=== PATIENT | female | born 1985 | race Caucasian/White ===

== ENCOUNTER 2016-05-17 18:38 | Emergency (ER) | payer OTHER ==
[~2016-05-17] VITALS: Ht 157.5 cm; Wt 77.0 kg
[2016-05-17 18:44] VITALS: BP 141/96; PULSE 118; RESP 16; TEMP 98.2; O2SAT 98
[2016-05-17] MEDS ORDERED: SODIUM CHLOR 0.9% 1000 ML INJ 1,000 ML IV ONE ×2 (19:24→21:45)
[2016-05-17] MEDS ORDERED: SODIUM CHLORIDE 0.9% FLUSH 5 ML FLUSH IVF PRN (19:30)
--- NOTE | 2016-05-17 19:31 | PD ---
HPI Chief Complaint: Syncope/Near-Syncope Time Seen by Provider: 19:26 Travel History International Travel<30 days: No Contact w/Intl Traveler<30days: No Traveled to known affect area: No History of Present Illness HPI Patient is a 31-year-old female presenting to the emergency Department for evaluation of itching. She states that she has visited [facility] since February and every time she goes there she sees black lines on the cabinets, on her children shoes, and she begins to itch. Patient reports feeling lightheaded, dizzy and almost passing out 2 days ago and then again this morning. She states that her skin feels as if something is bubbling underneath it and her arms begin to pulsate. She also reports being very thirsty, stating that she cannot get enough to drink. PFSH Past Medical History Anemia: Yes Diminished Hearing: No Tetanus Vaccination: Unknown Influenza Vaccination: No ?: Not LMP: 04/23/16 Tubal Ligation: Yes Past Surgical History Surgical History: No Previous Surgery Section: Yes (X2) Social History Alcohol Use: No Tobacco Use: Yes (/2 PPD) Substance Use: No Allergies-Medications (Allergen,Severity, Reaction): Coded Allergies: No Known Allergies (Verified , 05/17/16) Reported Meds & Prescriptions Reported Meds & Active Scripts Active Review of Systems Except as stated in HPI: all other systems reviewed are Neg HENT: Positive: Lightheadedness Cardiovascular: Positive: Palpitations, Tachycardia, No: Chest Pain or Discomfort Respiratory: No: Shortness of Breath Gastrointestinal: No: Nausea, Vomiting Skin: Positive Rash, Positive Itching Neurologic: Positive: Dizziness Psychiatric: No: Substance Abuse Physical Exam Narrative GENERAL: Developed, well nourished, alert female. Resting comfortably in no acute distress. SKIN: Warm and dry. HEAD: Atraumatic. Normocephalic. EYES: Pupils equal and round. No scleral icterus. No injection or drainage. ENT: No nasal bleeding or discharge. Mucous membranes pink and moist. NECK: Trachea midline. No JVD. CARDIOVASCULAR: Tachycardic. No murmur appreciated. RESPIRATORY: No accessory muscle use. Clear to auscultation. Breath sounds equal bilaterally. GASTROINTESTINAL: Abdomen soft, non-tender, nondistended. Hepatic and splenic margins not palpable. MUSCULOSKELETAL: No obvious deformities. No clubbing. No cyanosis. No edema. NEUROLOGICAL: Awake and alert. No obvious cranial nerve deficits. Motor grossly within normal limits. Normal speech. PSYCHIATRIC: Appropriate mood and affect; insight and judgment normal. Data Data Last Documented VS Vital Signs Date Time Temp Pulse Resp B/P Pulse Ox O2 Delivery O2 Flow Rate FiO2 05/17/16 22:51 103 22 106/72 97 Room Air 05/17/16 18:44 98.2 Orders Electrocardiogram (05/17/16 ) Ed Urine Pregnancytest Poc (05/17/16 19:24) Complete Blood Count With Diff (05/17/16 19:24) Comprehensive Metabolic Panel (05/17/16 19:24) Magnesium (Mg) (05/17/16 19:24) Ckmb (Isoenzyme) Profile (05/17/16:24) Troponin I (05/17/16:24) Act Partial Throm Time (Ptt) (05/17/16:24) Prothrombin Time / Inr (Pt) (05/17/16 19:24) Urinalysis - C+S If Indicated (05/17/16 19:24) Ct Brain W/O Iv Contrast(Rout) (05/17/16 19:24) Ecg Monitoring (05/17/16 19:24) Iv Access Insert/Monitor (05/17/16:24) Oximetry (05/17/16 19:24) Sodium Chloride 0.9% Flush (Ns Flush) (05/17/16 19:30) Sodium Chlor 0.9% 1000 Ml Inj (Ns 1000 M (05/17/16 19:24) Orthostatic Vital Signs (05/17/16 19:24) Drug Screen, Random Urine (05/17/16 19:24) CKMB (05/17/16 19:40) CKMB% (05/17/16 19:40) Sodium Chlor 0.9% 1000 Ml Inj (Ns 1000 M (05/17/16 21:45) Potassium Chloride (Kcl) (05/17/16 22:30) Labs Laboratory Tests Test 05/17/16 05/17/16 19:40 19:55 White Blood Count 7.9 TH/MM3 Red Blood Count 4.51 MIL/MM3 Hemoglobin 11.8 GM/DL Hematocrit 34.4 % Mean Corpuscular Volume 76.1 FL Mean Corpuscular Hemoglobin 26.1 PG Mean Corpuscular Hemoglobin 34.3 % Concent Red Cell Distribution Width 19.1 % Platelet Count 255 TH/MM3 Mean Platelet Volume 7.7 FL Neutrophils (%) (Auto) 74.7 % Lymphocytes (%) (Auto) 20.7 % Monocytes (%) (Auto) 3.9 % Eosinophils (%) (Auto) 0.4 % Basophils (%) (Auto) 0.3 % Neutrophils # (Auto) 5.9 TH/MM3 Lymphocytes # (Auto) 1.6 TH/MM3 Monocytes # (Auto) 0.3 TH/MM3 Eosinophils # (Auto) 0.0 TH/MM3 Basophils # (Auto) 0.0 TH/MM3 CBC Comment DIFF FINAL Differential Comment Prothrombin Time 10.7 SEC Prothromb Time International 1.0 RATIO Ratio Activated Partial 25.5 SEC Thromboplast Time Sodium Level 140 MEQ/L Potassium Level 3.1 MEQ/L Chloride Level 102 MEQ/L Carbon Dioxide Level 30.4 MEQ/L Anion Gap 8 MEQ/L Blood Urea Nitrogen 11 MG/DL Creatinine 0.89 MG/DL Estimat Glomerular Filtration 74 ML/MIN Rate Random Glucose 99 MG/DL Calcium Level 8.2 MG/DL Magnesium Level 2.1 MG/DL Total Bilirubin 0.7 MG/DL Aspartate Amino Transf 28 U/L (AST/SGOT) Alanine Aminotransferase 36 U/L (ALT/SGPT) Alkaline Phosphatase 56 U/L Total Creatine Kinase 328 U/L Creatine Kinase MB 5.0 NG/ML Creatine Kinase MB % 1.5 % Troponin I LESS THAN 0.02 NG/ML Total Protein 7.8 GM/DL Albumin 4.0 GM/DL Urine Color YELLOW Urine Turbidity HAZY Urine pH 6.0 Urine Specific [place] 1.029 Urine Protein 30 mg/dL Urine Glucose (UA) NEG mg/dL Urine Ketones 10 mg/dL Urine Occult Blood NEG Urine Nitrite NEG Urine Bilirubin NEG Urine Urobilinogen 2.0 MG/DL Urine Leukocyte Esterase NEG Urine RBC 11 /hpf Urine WBC 2 /hpf Urine Squamous Epithelial 8 /hpf Cells Urine Bacteria RARE /hpf Urine Mucus MANY /lpf Microscopic Urinalysis Comment CULT NOT INDICATED Urine Opiates Screen NEG Urine Barbiturates Screen NEG Urine Amphetamines Screen POS Urine Benzodiazepines Screen NEG Urine Cocaine Screen NEG Urine Cannabinoids Screen NEG MDM Medical Decision Making Medical Screen Exam Complete: Yes Emergency Medical Condition: Yes Interpretation(s) Last Impressions Head CT 05/17/161923 Signed Impressions: Service Date/Time: Tuesday, May 17, 2016 21:38 - CONCLUSION: Normal examination for a patient of this age. Gilberto Peacock MD Laboratory Tests Test 05/17/16 05/17/16 19:40 19:55 White Blood Count 7.9 TH/MM3 Red Blood Count 4.51 MIL/MM3 Hemoglobin 11.8 GM/DL Hematocrit 34.4 % Mean Corpuscular Volume 76.1 FL Mean Corpuscular Hemoglobin 26.1 PG Mean Corpuscular Hemoglobin 34.3 % Concent Red Cell Distribution Width 19.1 % Platelet Count 255 TH/MM3 Mean Platelet Volume 7.7 FL Neutrophils (%) (Auto) 74.7 % Lymphocytes (%) (Auto) 20.7 % Monocytes (%) (Auto) 3.9 % Eosinophils (%) (Auto) 0.4 % Basophils (%) (Auto) 0.3 % Neutrophils # (Auto) 5.9 TH/MM3 Lymphocytes # (Auto) 1.6 TH/MM3 Monocytes # (Auto) 0.3 TH/MM3 Eosinophils # (Auto) 0.0 TH/MM3 Basophils # (Auto) 0.0 TH/MM3 CBC Comment DIFF FINAL Differential Comment Prothrombin Time 10.7 SEC Prothromb Time International 1.0 RATIO Ratio Activated Partial 25.5 SEC Thromboplast Time Sodium Level 140 MEQ/L Potassium Level 3.1 MEQ/L Chloride Level 102 MEQ/L Carbon Dioxide Level 30.4 MEQ/L Anion Gap 8 MEQ/L Blood Urea Nitrogen 11 MG/DL Creatinine 0.89 MG/DL Estimat Glomerular Filtration 74 ML/MIN Rate Random Glucose 99 MG/DL Calcium Level 8.2 MG/DL Magnesium Level 2.1 MG/DL Total Bilirubin 0.7 MG/DL Aspartate Amino Transf 28 U/L (AST/SGOT) Alanine Aminotransferase 36 U/L (ALT/SGPT) Alkaline Phosphatase 56 U/L Total Creatine Kinase 328 U/L Creatine Kinase MB 5.0 NG/ML Creatine Kinase MB % 1.5 % Troponin I LESS THAN 0.02 NG/ML Total Protein 7.8 GM/DL Albumin 4.0 GM/DL Urine Color YELLOW Urine Turbidity HAZY Urine pH 6.0 Urine Specific [place] 1.029 Urine Protein 30 mg/dL Urine Glucose (UA) NEG mg/dL Urine Ketones 10 mg/dL Urine Occult Blood NEG Urine Nitrite NEG Urine Bilirubin NEG Urine Urobilinogen 2.0 MG/DL Urine Leukocyte Esterase NEG Urine RBC 11 /hpf Urine WBC 2 /hpf Urine Squamous Epithelial 8 /hpf Cells Urine Bacteria RARE /hpf Urine Mucus MANY /lpf Microscopic Urinalysis Comment CULT NOT INDICATED Urine Opiates Screen NEG Urine Barbiturates Screen NEG Urine Amphetamines Screen POS Urine Benzodiazepines Screen NEG Urine Cocaine Screen NEG Urine Cannabinoids Screen NEG Vital Signs Date Time Temp Pulse Resp B/P Pulse Ox O2 Delivery O2 Flow Rate FiO2 05/17/16 18:44 98.2 118 16 141/96 98 Differential Diagnosis Substance abuse versus electrolyte abnormality versus cardiac arrhythmia versus urinary tract infection versus psychosis versus other Narrative Course Patient is a 31-year-old female presenting to the emergency department for evaluation of what she thought was a skin rash, she then stated she was having episodes where she felt as if she would pass out, she reports increased thirst, and tachycardia. Labs and imaging ordered. Was placed on cardiac telemetry monitoring, continuous pulse oximetry. IV access was initiated. Cardiac on arrival, her heart rate did respond after 1 L of IV fluids down to 102-105, a second liter was ordered. CT scan of the brain is negative for acute abnormality CBC is unremarkable Chemistry with a potassium of 3.1, CK 328, troponin is negative Tox screen was positive for amphetamines, patient is on Adderall and has been for several years and her dose was recently lowered per her report. Urinalysis is not indicative of urinary tract infection. Patient was given oral potassium replacement as well as 2 L of IV fluid. She has a primary care provider who is also evaluated her for these issues. At this time patient will be discharged after her IV fluids are done being administered. Patient would rather go home, she stated that she will follow-up with her doctor. It was advised that she may consider discontinuing the Adderall or taking drug holidays. Additionally she was encouraged to speak with her primary doctor regarding this as well. Furthermore patient was advised to return to emergency department for any new or worsening symptoms. Patient verbalized understanding of these instructions. Patient is stable for discharge. Labs and imaging were discussed with my attending physician prior to disposition. Attending was in agreement with Plan of care as well as discharging patient with follow-up with primary doctor Patient's heart rate was 103 after 2 L of IV fluids. Tachycardia is likely secondary to Adderall use. Patient continues to deny any chest pain. She was encouraged again to speak with her primary doctor regarding this. Patient verbalized understanding of instructions. Patient is stable for discharge. Diagnosis Primary Impression: Near syncope Additional Impressions: Hypokalemia Tachycardia Referrals: Primary Care Physician 2 days Patient Instructions: Amphetamine (By mouth), General Instructions, Syncope (ED ), Tachycardia (ED) Additional Instructions: Follow-up with your primary doctor in 24-48 hours Return to emergency department for any new or worsening symptoms Maintain adequate fluid intake Med/Other Pt SpecificInfo: No Change to Meds Disposition: 01 DISCHARGE HOME Condition: Stable Betzy Clifford May 17, 2016 19:31 Betzy Clifford May 17, 2016 19:31
[2016-05-17 19:57] LABS: AUTOMATED NEUTROPHIL # 5.9 TH/MM3 (1.8-7.7); BASOPHIL % 0.3 % (0.0-2.0); EOSINOPHIL % 0.4 % (0.0-4.0); HEMATOCRIT 34.4 % (35.0-46.0); HEMO FLAGS DIFF FINAL; LYMPH % 20.7 % (9.0-44.0); LYMPHOCYTE # 1.6 TH/MM3 (1.0-4.8); MEAN CELL VOLUME 76.1 FL (80.0-100.0); MEAN CORPUSCULAR HEMOGLOBIN 26.1 PG (27.0-34.0); MEAN CORPUSCULAR HGB CONC 34.3 % (32.0-36.0); MONO % 3.9 % (0.0-8.0); NEUT % 74.7 % (16.0-70.0); PLATELET COUNT 255 TH/MM3 (150-450); RED BLOOD COUNT 4.51 MIL/MM3 (4.00-5.30); RED CELL DISTRIBUTION WIDTH 19.1 % (11.6-17.2); WHITE BLOOD COUNT 7.9 TH/MM3 (4.0-11.0)
[2016-05-17 19:58] VITALS: BP 129/80; PULSE 123; RESP 22; O2SAT 98
[2016-05-17 20:03] LABS: APTT (PATIENT) 25.5 SEC (24.3-30.1); PROTHROMBIN TIME - PATIENT 10.7 SEC (9.8-11.6)
[2016-05-17 20:06] VITALS: BP_SYST 133; BP_SYST 134; BP_DIAS 74; BP_DIAS 75; BP_DIAS 81; RESP 16; RESP 21; RESP 24
[2016-05-17 20:40] LABS: BACTERIA, URINE RARE /hpf; BLOOD, URINE NEG (NEG); COMMENT (UR) CULT NOT INDICATED; CULTURE IF INDICATED CULT NOT INDICATED; GLUCOSE,URINE NEG (NEG); KETONE, URINE 10 mg/dL (NEG); MUCUS URINE MANY /lpf (OCC); NITRITE,URINE NEG (NEG); SQUAMOUS EPITHELIAL CELL URINE 8 /hpf (0-5); URINE COLOR YELLOW (YELLW/STRAW)
[2016-05-17 20:56] LABS: ANION GAP 8 MEQ/L (5-15); AST (GOT) 28 U/L (15-37); BICARBONATE 30.4 MEQ/L (21.0-32.0); BLOOD UREA NITROGEN 11 MG/DL (7-18); CHLORIDE 102 MEQ/L (98-107); GLOMERULAR FILTRATION RATE 74 ML/MIN (>89); MAGNESIUM 2.1 MG/DL (1.5-2.5); POTASSIUM 3.1 MEQ/L (3.5-5.1); SODIUM (NA) 140 MEQ/L (136-145)
[2016-05-17 21:01] LABS: ALKALINE PHOSPHATASE 56 U/L (45-117); ALT (GPT) 36 U/L (10-53); CREATINE KINASE 328 U/L (26-192); TOTAL BILIRUBIN ADULT 0.7 MG/DL (0.2-1.0)
[2016-05-17 21:35] LABS: BARBITURATES, URINE NEG (NEG)
[2016-05-17 21:47] LABS: AMPHETAMINE, URINE POS (NEG); COCAINE, URINE NEG (NEG)
--- NOTE | 2016-05-17 21:54 | RADRPT ---
EXAM DATE/TIME: 05/17/2016 21:38 [facility] COMPARISON: No previous studies available for comparison. INDICATIONS : Episodes of tachycardia and near syncope in past 2 weeks. RADIATION DOSE: 40.32 CTDIvol (mGy) MEDICAL HISTORY : None SURGICAL HISTORY : Tubal ligation. section. ENCOUNTER: Initial ACUITY: 2 weeks PAIN SCALE: 0/10 LOCATION: cranial TECHNIQUE: Multiple contiguous axial images were obtained of the head. Using automated exposure control and adj ustment of the mA and/or kV according to patient size, radiation dose was kept as low as reasonably a chievable to obtain optimal diagnostic quality images. FINDINGS: CEREBRUM: The ventricles are normal for age. No evidence of midline shift, mass lesion, hemorrhage or acute in farction. No extra-axial fluid collections are seen. POSTERIOR FOSSA: The cerebellum and brainstem are intact. The 4th ventricle is midline. The cerebellopontine angle i s unremarkable. EXTRACRANIAL: The visualized portion of the orbits is intact. SKULL: The calvaria is intact. No evidence of skull fracture. CONCLUSION: Normal examination for a patient of this age. Gilberto Peacock MD on May 17, 2016 at 21:50 Board Certified Radiologist. This report was verified electronically.
[2016-05-17] MEDS ORDERED: POTASSIUM CHLORIDE 20 MEQ CONTROLLED RELEASE TAB PO ONE (22:30)
[2016-05-17 22:51] VITALS: BP 106/72; PULSE 103; RESP 22; O2SAT 97
--- NOTE | 2016-05-18 15:35 | EKG ---
Date Performed: 05/17/2016 Time Performed: 19:33:29 PTAGE: 31 years EKG: SINUS TACHYCARDIA WITH OCCASIONAL SUPRAVENTRICULAR PREMATURE COMPLEXES POSSIBLE RIGHT VENTR ICULAR CONDUCTION DELAY MINIMAL ST DEPRESSION ABNORMAL RHYTHM ECG NO PREVIOUS TRACING DOCTOR: Davy Gonzalez Interpretating Date/Time 05/18/2016 15:33:37
== END 2016-05-17 23:47 | disposition home or self-care (01) ==
LOC: NEPA 18:38
DX: R55 Syncope and collapse (principal); E87.6 Hypokalemia; R00.0 Tachycardia, unspecified; D64.9 Anemia, unspecified; F17.210 Nicotine dependence, cigarettes, uncomplicated; R00.2 Palpitations
CPT/HCPCS: 70450; 80053; 80307; 81001; 82550; 82552; 83735; 84484; 84703; 85025; 85610; 85730; 93005; 99284; J7030

== ENCOUNTER 2016-06-16 04:10 | Emergency (ER) | payer OTHER ==
[~2016-06-16] VITALS: Ht 157.5 cm; Wt 85.0 kg
[2016-06-16 04:13] VITALS: BP 144/104; PULSE 136; RESP 16; TEMP 99.3; O2SAT 95
[2016-06-16] MEDS ORDERED: FURO1TAB62 PO (04:28)
[2016-06-16] MEDS ORDERED: DULO20 PO (04:28)
[2016-06-16] MEDS ORDERED: SODIUM CHLORIDE 0.9% FLUSH 5 ML FLUSH IVF PRN (05:00)
[2016-06-16 05:06] LABS: AUTOMATED NEUTROPHIL # 5.6 TH/MM3 (1.8-7.7); BASOPHIL % 0.3 % (0.0-2.0); EOSINOPHIL % 0.5 % (0.0-4.0); HEMO FLAGS DIFF FINAL; LYMPH % 27.3 % (9.0-44.0); LYMPHOCYTE # 2.3 TH/MM3 (1.0-4.8); MEAN CELL VOLUME 76.9 FL (80.0-100.0); MEAN CORPUSCULAR HEMOGLOBIN 26.8 PG (27.0-34.0); MEAN CORPUSCULAR HGB CONC 34.8 % (32.0-36.0); MONO % 4.9 % (0.0-8.0); PLATELET COUNT 250 TH/MM3 (150-450); RED BLOOD COUNT 4.42 MIL/MM3 (4.00-5.30); RED CELL DISTRIBUTION WIDTH 18.3 % (11.6-17.2); WHITE BLOOD COUNT 8.3 TH/MM3 (4.0-11.0)
[2016-06-16 05:16] LABS: AMPHETAMINE, URINE POS (NEG); BARBITURATES, URINE NEG (NEG); COCAINE, URINE NEG (NEG)
[2016-06-16 05:26] LABS: APTT (PATIENT) 26.4 SEC (24.3-30.1); PROTHROMBIN TIME - PATIENT 10.7 SEC (9.8-11.6)
[2016-06-16 05:28] LABS: ANION GAP 10 MEQ/L (5-15); BICARBONATE 24.1 MEQ/L (21.0-32.0); BLOOD UREA NITROGEN 15 MG/DL (7-18); CHLORIDE 105 MEQ/L (98-107); GLOMERULAR FILTRATION RATE 78 ML/MIN (>89); POTASSIUM 3.6 MEQ/L (3.5-5.1); SODIUM (NA) 139 MEQ/L (136-145)
[2016-06-16 05:36] LABS: CREATINE KINASE 194 U/L (26-192)
[2016-06-16 05:48] LABS: CKMB 4.2 NG/ML (0.5-3.6)
--- NOTE | 2016-06-16 05:53 | PD ---
HPI Chief Complaint: Cardiac Complaint Time Seen by Provider: 04:47 Travel History International Travel<30 days: No Contact w/Intl Traveler<30days: No Traveled to known affect area: No History of Present Illness HPI 31-year-old female presents to the emergency department for complaint of rapid heart rate. Patient states she's been seen several times before for rapid heart rate over the past 2 months. Patient has been seen by her primary care provider who started her on Cymbalta which she thinks may be the precipitating cause. Patient was having rapid heart rate before starting the Cymbalta but seems to be worse since then. Patient has been seen in the emergency department and reportedly was encouraged to stay in the hospital but declined admission. Patient states that she does not know why she has a fast heartbeat. Patient reportedly is prescribed Adderall that she takes on an as-needed basis and her last visit it was recommended that she take an Adderall vacation. Patient states she has decreased the dose of Adderall and only takes it every third day. Patient denies any substance use. Patient is very concerned because since her mother [place] she has felt as if perhaps she has been infected with a parasite. Patient points to areas on her skin that she claims has white strings coming out of her that does not appear to be anything there she also notes that there is some black debris on her purse that did not use to be there. Patient states she has discussed this with her primary care provider and he has asked her to bring samples of what she has observed to the office. Patient states each time she tries to do so she is not able to successfully collect any of the white strings or black dots. Patient states she does not have those at this time but she is concerned about the increased heart rate that may be related to possible infection or parasite exposure. No other persons that have been in the condominium has had similar symptoms. [facility] Past Medical History Narrative Medical Anemia anxiety ADHD tubal ligation tobacco use nursing notes reviewed Anemia: Yes Anxiety: Yes Diminished Hearing: No Influenza Vaccination: No ?: Not LMP: NO PERIOD FOR 2 MONTHS Tubal Ligation: Yes Past Surgical History Section: Yes (X2) Social History Alcohol Use: No Tobacco Use: Yes (1/2 PPD) Substance Use: No Allergies-Medications (Allergen,Severity, Reaction): Coded Allergies: No Known Allergies (Verified , 06/16/16) Reported Meds & Prescriptions Reported Meds & Active Scripts Active Xanax (Alprazolam) 0.5 Mg Tab 0.5 Mg PO Q12HR PRN Reported Lasix (Furosemide) 20 Mg Tab 20 Mg PO DAILY Cymbalta DR (Duloxetine HCl) 20 Mg Capdr 20 Mg PO DAILY Review of Systems Except as stated in HPI: all other systems reviewed are Neg General / Constitutional: No: Fever, Weight Loss HENT: No: Congestion Cardiovascular: Positive: Palpitations, Tachycardia, No: Chest Pain or Discomfort Respiratory: No: Shortness of Breath Gastrointestinal: No: Nausea, Vomiting, Abdominal Pain Genitourinary: No: Dysuria, Flank Pain Musculoskeletal: No: Myalgias, Arthralgias Skin: No Rash Neurologic: No: Weakness Psychiatric: Positive: Anxiety, No: Suicidal Ideations, Mood Disorder, Substance Abuse, Homicidal Ideation Hematologic/Lymphatic: No: Easy Bruising Physical Exam Narrative GENERAL: Well-developed well-nourished female in no acute distress no respiratory distress appears mildly anxious but is able to relay her history without difficulty. GCS 15. No pressured speech. SKIN: Warm and dry. HEAD: Normocephalic. EYES: No scleral icterus. No injection or drainage. NECK: Supple, trachea midline. No JVD or lymphadenopathy. CARDIOVASCULAR: Increased Regular rate and rhythm without murmurs, gallops, or rubs. RESPIRATORY: Breath sounds equal bilaterally. No accessory muscle use. GASTROINTESTINAL: Abdomen soft, non-tender, nondistended. MUSCULOSKELETAL: No cyanosis, or edema. BACK: Nontender without obvious deformity. No CVA tenderness. Data Data Last Documented VS Vital Signs Date Time Temp Pulse Resp B/P Pulse Ox O2 Delivery O2 Flow Rate FiO2 06/16/16 05:06 100 Room Air 06/16/16 04:13 99.3 136 16 144/104 Orders Electrocardiogram (06/16/16 04:47) Basic Metabolic Panel (Bmp) (06/16/16 04:47) Ckmb (Isoenzyme) Profile (06/16/16 04:47) Complete Blood Count With Diff (06/16/16 04:47) Magnesium (Mg) (06/16/16 04:47) Prothrombin Time / Inr (Pt) (06/16/16 04:47) Act Partial Throm Time (Ptt) (06/16/16 04:47) Troponin I (06/16/16 04:47) Chest, Single Ap (06/16/16 04:47) Ecg Monitoring (06/16/16 04:47) Bilateral Bp Monitoring (06/16/16 04:47) Iv Access Insert/Monitor (06/16/16 04:47) Oximetry (06/16/16 04:47) Oxygen Administration (06/16/16 04:47) Sodium Chloride 0.9% Flush (Ns Flush) (06/16/16 05:00) Thyroid Stimulating Hormone (06/16/16 04:47) Ed Urine Pregnancytest Poc (06/16/16 04:47) Drug Screen, Random Urine (06/16/16 04:47) CKMB (06/16/16 04:55) CKMB% (06/16/16 04:55) Labs Laboratory Tests Test 06/16/16 06/16/16 04:54 04:55 Urine Opiates Screen NEG Urine Barbiturates Screen NEG Urine Amphetamines Screen POS Urine Benzodiazepines Screen NEG Urine Cocaine Screen NEG Urine Cannabinoids Screen NEG White Blood Count 8.3 TH/MM3 Red Blood Count 4.42 MIL/MM3 Hemoglobin 11.8 GM/DL Hematocrit 34.0 % Mean Corpuscular Volume 76.9 FL Mean Corpuscular Hemoglobin 26.8 PG Mean Corpuscular Hemoglobin 34.8 % Concent Red Cell Distribution Width 18.3 % Platelet Count 250 TH/MM3 Mean Platelet Volume 7.4 FL Neutrophils (%) (Auto) 67.0 % Lymphocytes (%) (Auto) 27.3 % Monocytes (%) (Auto) 4.9 % Eosinophils (%) (Auto) 0.5 % Basophils (%) (Auto) 0.3 % Neutrophils # (Auto) 5.6 TH/MM3 Lymphocytes # (Auto) 2.3 TH/MM3 Monocytes # (Auto) 0.4 TH/MM3 Eosinophils # (Auto) 0.0 TH/MM3 Basophils # (Auto) 0.0 TH/MM3 CBC Comment DIFF FINAL Differential Comment Prothrombin Time 10.7 SEC Prothromb Time International 1.0 RATIO Ratio Activated Partial 26.4 SEC Thromboplast Time Sodium Level 139 MEQ/L Potassium Level 3.6 MEQ/L Chloride Level 105 MEQ/L Carbon Dioxide Level 24.1 MEQ/L Anion Gap 10 MEQ/L Blood Urea Nitrogen 15 MG/DL Creatinine 0.85 MG/DL Estimat Glomerular Filtration 78 ML/MIN Rate Random Glucose 103 MG/DL Calcium Level 9.0 MG/DL Magnesium Level 2.0 MG/DL Total Creatine Kinase 194 U/L Creatine Kinase MB 4.2 NG/ML Creatine Kinase MB % 2.2 % Troponin I LESS THAN 0.02 NG/ML Thyroid Stimulating Hormone 1.310 uIU/ML 3rd Gen [place] Medical Decision Making Medical Screen Exam Complete: Yes Emergency Medical Condition: Yes Medical Record Reviewed: Yes Interpretation(s) EKG: Sinus tachycardia no acute ST elevation or injury pattern change noted CBC & BMP Diagram 06/16/16 04:55 Differential Diagnosis Anxiety, adverse medication reaction, substance ingestion, thyroid dysfunction, electrolyte disturbance Narrative Course EKG performed shows sinus tachycardia without acute injury pattern change; CBC with automated differential normal total white cell count with automated differential within normal range no eosinophilia chemistries within normal limits; CK total is elevated but MB percent is within normal range and troponin I is less than 0.02 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 Patient denies other concerns or complaints. Patient does take Adderall as-needed basis she is encouraged to taper this dose that she states she has artery done so normally takes Adderall on a as-needed basis every third day and has actually been on a lower dose than previously. Patient has discussed this also reportedly with her primary care provider. Patient is informed that her thyroid function does fallen to normal range. Patient is encouraged to follow- up with her primary care provider as scheduled. Patient does not have any suicidal or homicidal ideation. Patient is offered additional IV fluid and again antianxiety which she has declined. Diagnosis Primary Impression: Tachycardia, paroxysmal Additional Impression: History of anxiety Referrals: Primary Care Physician 1 day Patient Instructions: General Instructions Departure Forms: Tests/Procedures, Work Release Special Instructions: no work x 1 day Additional Instructions: Follow-up with primary care provider Return to the emergency department for any concerns or change in condition Gradually discontinue Adderall use Increase fluid hydration Med/Other Pt SpecificInfo: Prescription(s) given Scripts Lizettzolam (Xanax)0.5 Mg Tab0.5 Mg PO Q12HR PRN (ANXIETY) #4 TAB Ref 0 Prov:Shanta Kelly MD 06/16/16 Disposition: 01 DISCHARGE HOME Condition: Stable Shanta Kelly MD Jun 16, 2016 05:53
[2016-06-16] MEDS ORDERED: ALPR.5 PO (06:17)
--- NOTE | 2016-06-16 06:27 | RADRPT ---
EXAM DATE/TIME: 06/16/2016 05:18 [facility] COMPARISON: No previous studies available for comparison. INDICATIONS : Chest pain with headache. MEDICAL HISTORY : None. SURGICAL HISTORY : Tubal ligation. section. ENCOUNTER: Initial ACUITY: 1 day PAIN SCORE: 4/10 LOCATION: Bilateral chest FINDINGS: A single view of the chest demonstrates the lungs to be symmetrically aerated without evidence of mas s, infiltrate or effusion. The cardiomediastinal contours are unremarkable. Osseous structures are intact. CONCLUSION: No acute disease. Pepe Shen MD on June 16, 2016 at 6:25 Board Certified Radiologist. This report was verified electronically.
--- NOTE | 2016-06-16 14:26 | EKG ---
Date Performed: 06/16/2016 Time Performed: 04:48:18 PTAGE: 31 years EKG: SINUS TACHYCARDIA WITH OCCASIONAL SUPRAVENTRICULAR PREMATURE COMPLEXES MODERATE ST DEPRESSI ON ABNORMAL ECG PREVIOUS TRACING : 05/17/2016 19.33 Compared to prior tracing no significant change DOCTOR: Andrew Gregorio Interpretating Date/Time 06/16/2016 14:25:22
== END 2016-06-16 06:44 | disposition home or self-care (01) ==
LOC: NEPC 04:10
DX: I47.9 Paroxysmal tachycardia, unspecified (principal); I49.1 Atrial premature depolarization; R51 Headache; R07.9 Chest pain, unspecified; F17.210 Nicotine dependence, cigarettes, uncomplicated
CPT/HCPCS: 71010; 80048; 80307; 82550; 82552; 83735; 84443; 84484; 84703; 85025; 85610; 85730; 93005

== ENCOUNTER 2016-11-13 07:53 | Emergency (ER) | payer OTHER ==
[~2016-11-13] VITALS: Ht 157.5 cm; Wt 88.0 kg
[~2016-11-13 07:53] MED LIST: ALPR.5 PO; DULO20 PO; FURO1TAB62 PO
[2016-11-13 07:55] VITALS: BP 183/99; PULSE 132; RESP 20; TEMP 98.9; O2SAT 100
[2016-11-13] MEDS ORDERED: SODIUM CHLOR 0.9% 1000 ML INJ 1,000 ML IV SCH (09:01)
--- NOTE | 2016-11-13 09:08 | PD ---
HPI Chief Complaint: rash. Time Seen by Provider: 08:38 Travel History International Travel<30 days: No Contact w/Intl Traveler<30days: No Traveled to known affect area: No History of Present Illness HPI Patient is a 31-year-old female presents emergency department for evaluation of rash all over tachycardia and throat swelling. Patient states this started ever since she had a no CMT bite her "down there". She states that recently at outside hospital she was diagnosed with staph infection. She states she's also got "heart problems". She states that she's had a Holter monitor and echocardiogram and does not know the results of those yet. She denies any chest pain but does endorse mild shortness of breath. She has been seen here for tachycardia like symptoms in the past. She also was tested positive for amphetamines here in the past. Denies any fevers denies any nausea vomiting denies any vaginal bleeding vaginal discharge. PFSH Past Medical History Anemia: Yes Anxiety: Yes Diminished Hearing: No ?: Unknown Tubal Ligation: Yes Past Surgical History Section: Yes (X2) Social History Alcohol Use: No Tobacco Use: Yes (1/2 PPD) Substance Use: No Allergies-Medications (Allergen,Severity, Reaction): Coded Allergies: No Known Allergies (Verified , 11/13/16) Reported Meds & Prescriptions Reported Meds & Active Scripts Active Reported Clindamycin (Clindamycin HCl) 300 Mg Cap 300 Mg PO BID Adderall (Amphetamine-Dextroamphetamine) 20 Mg Tab 20 Mg PO DAILY Avoid late evening doses. Space doses at least 4 to 6 hours if more than once/day dosing. Cymbalta DR (Duloxetine HCl) 20 Mg Capdr 20 Mg PO DAILY Review of Systems Except as stated in HPI: all other systems reviewed are Neg Physical Exam Narrative GENERAL: Well-developed well-nourished no obvious distress] SKIN: Focused skin assessment warm/dry. There is a small papular rash over the forearms. Scattered papules very sparse. Likely consistent with bug bites. HEAD: Atraumatic. Normocephalic. EYES: Pupils equal and round. No scleral icterus. No injection or drainage. ENT: No nasal bleeding or discharge. Mucous membranes pink and moist. Oropharynx clear, TMs clear. NECK: Trachea midline. No JVD. Supple no lymphadenopathy no goiter. CARDIOVASCULAR: Regular rate and rhythm. No murmur appreciated. RESPIRATORY: No accessory muscle use. Clear to auscultation. Breath sounds equal bilaterally. GASTROINTESTINAL: Abdomen soft, non-tender, nondistended. Hepatic and splenic margins not palpable. MUSCULOSKELETAL: No obvious deformities. No clubbing. No cyanosis. No edema. NEUROLOGICAL: Awake and alert. No obvious cranial nerve deficits. Motor grossly within normal limits. Normal speech. PSYCHIATRIC: Appropriate mood and affect; insight and judgment normal. Data Data Last Documented VS Vital Signs Date Time Temp Pulse Resp B/P Pulse Ox O2 Delivery O2 Flow Rate FiO2 11/13/16 10:20 112 16 141/97 98 Room Air 11/13/16 07:55 98.9 Orders Urinalysis - C+S If Indicated (11/13/16 08:39) Ed Urine Pregnancytest Poc (11/13/16 08:39) Electrocardiogram (11/13/16 09:01) Basic Metabolic Panel (Bmp) (11/13/16 09:01) Complete Blood Count With Diff (11/13/16 09:01) Creatine Kinase (Cpk) (11/13/16 09:01) Prothrombin Time / Inr (Pt) (11/13/16 09:01) Act Partial Throm Time (Ptt) (11/13/16 09:01) Thyroid Stimulating Hormone (11/13/16 09:01) Chest, Single Ap (11/13/16 09:01) Blood Glucose (11/13/16 09:01) Ecg Monitoring (11/13/16 09:01) Iv Access Insert/Monitor (11/13/16 09:01) Oximetry (11/13/16 09:01) Sodium Chloride 0.9% Flush (Ns Flush) (11/13/16 09:15) Sodium Chlor 0.9% 1000 Ml Inj (Ns 1000 M (11/13/16 09:01) D-Dimer (11/13/16 09:23) Potassium Chloride (Kcl) (11/13/16 11:00) Labs Laboratory Tests Test 11/13/16 11/13/16 09:15 09:35 Urine Color YELLOW Urine Turbidity CLEAR Urine pH 6.0 Urine Specific [place] 1.029 Urine Protein 30 mg/dL Urine Glucose (UA) NEG mg/dL Urine Ketones NEG mg/dL Urine Occult Blood MOD Urine Nitrite NEG Urine Bilirubin NEG Urine Urobilinogen 2.0 MG/DL Urine Leukocyte Esterase NEG Urine RBC 29 /hpf Urine WBC 7 /hpf Urine Squamous Epithelial 1 /hpf Cells Urine Mucus MANY /lpf Microscopic Urinalysis Comment CULT NOT INDICATED White Blood Count 7.0 TH/MM3 Red Blood Count 4.19 MIL/MM3 Hemoglobin 11.5 GM/DL Hematocrit 34.1 % Mean Corpuscular Volume 81.3 FL Mean Corpuscular Hemoglobin 27.4 PG Mean Corpuscular Hemoglobin 33.7 % Concent Red Cell Distribution Width 15.8 % Platelet Count 229 TH/MM3 Mean Platelet Volume 7.1 FL Neutrophils (%) (Auto) 66.6 % Lymphocytes (%) (Auto) 28.3 % Monocytes (%) (Auto) 4.4 % Eosinophils (%) (Auto) 0.4 % Basophils (%) (Auto) 0.3 % Neutrophils # (Auto) 4.6 TH/MM3 Lymphocytes # (Auto) 2.0 TH/MM3 Monocytes # (Auto) 0.3 TH/MM3 Eosinophils # (Auto) 0.0 TH/MM3 Basophils # (Auto) 0.0 TH/MM3 CBC Comment DIFF FINAL Differential Comment Prothrombin Time 11.2 SEC Prothromb Time International 1.0 RATIO Ratio Activated Partial 26.8 SEC Thromboplast Time D-Dimer Quantitative (PE/DVT) 0.35 MG/L FEU Sodium Level 139 MEQ/L Potassium Level 2.9 MEQ/L Chloride Level 106 MEQ/L Carbon Dioxide Level 26.1 MEQ/L Anion Gap 7 MEQ/L Blood Urea Nitrogen 10 MG/DL Creatinine 0.66 MG/DL Estimat Glomerular Filtration 104 ML/MIN Rate Random Glucose 89 MG/DL Calcium Level 8.5 MG/DL Total Creatine Kinase 155 U/L Thyroid Stimulating Hormone 0.924 uIU/ML [address] [place] [address] Medical Decision Making Medical Screen Exam Complete: Yes Emergency Medical Condition: Yes Interpretation(s) EKG shows sinus tachycardia at a rate of 108, intervals otherwise within normal limits. No concerning ST segment changes. Nonspecific RSR prime pattern in V1. There is a singular PAC. This a borderline EKG. Differential Diagnosis PE unlikely, hypothyroidism, goiter, electrolyte abnormality, psychosis. Narrative Course Patient roomed in emergency department, seems to be preoccupied with that she has a parasite illness. She appears well she's not had any foreign travel. Afebrile. Initial workup negative in the emergency department. There is no indication further workup at this time. Recommend that she follow-up the primary care physician with the [facility] for further workup. She stable for discharge. She certainly may be bordering on psychosis however she is certainly not greatly disabled is not a threat to herself or others at this time Diagnosis Primary Impression: Rash Additional Impression: Anxiety Referrals: [facility] Additional Instructions: Follow-up the primary care physician by phone or the [facility]. Disposition: 01 DISCHARGE HOME Condition: Stable Silvestre Medel MD Nov 13, 2016 09:08
[2016-11-13] MEDS ORDERED: SODIUM CHLORIDE 0.9% FLUSH 5 ML FLUSH IV FLUSH PRN (09:15)
[2016-11-13 09:20] VITALS: BP 155/94; PULSE 117; RESP 20; O2SAT 100
[2016-11-13] MEDS ORDERED: ADDE20 PO (09:30)
[2016-11-13] MEDS ORDERED: CLIN1CAP6 PO (09:32)
--- NOTE | 2016-11-13 09:56 | RADRPT ---
EXAM DATE/TIME: 11/13/2016 09:33 [facility] COMPARISON: CHEST SINGLE AP, June 16, 2016, 5:18. INDICATIONS : Short of breath for several days. MEDICAL HISTORY : None. SURGICAL HISTORY : None. ENCOUNTER: Initial ACUITY: 3 days PAIN SCORE: 0/10 LOCATION: Bilateral chest FINDINGS: A single view of the chest demonstrates the lungs to be symmetrically aerated without evidence of mas s, infiltrate or effusion. The cardiomediastinal contours are unremarkable. Osseous structures are intact. There are multiple overlying electrocardiogram leads. CONCLUSION: No acute disease. Gabriele Michelle MD on November 13, 2016 at 9:55 Board Certified Radiologist. This report was verified electronically.
[2016-11-13 10:07] LABS: AUTOMATED NEUTROPHIL # 4.6 TH/MM3 (1.8-7.7); BASOPHIL % 0.3 % (0.0-2.0); EOSINOPHIL % 0.4 % (0.0-4.0); HEMATOCRIT 34.1 % (35.0-46.0); HEMO FLAGS DIFF FINAL; LYMPH % 28.3 % (9.0-44.0); MEAN CELL VOLUME 81.3 FL (80.0-100.0); MEAN CORPUSCULAR HEMOGLOBIN 27.4 PG (27.0-34.0); MEAN CORPUSCULAR HGB CONC 33.7 % (32.0-36.0); MONO % 4.4 % (0.0-8.0); NEUT % 66.6 % (16.0-70.0); PLATELET COUNT 229 TH/MM3 (150-450); RED BLOOD COUNT 4.19 MIL/MM3 (4.00-5.30); RED CELL DISTRIBUTION WIDTH 15.8 % (11.6-17.2)
[2016-11-13 10:15] LABS: APTT (PATIENT) 26.8 SEC (24.3-30.1); PROTHROMBIN TIME - PATIENT 11.2 SEC (9.8-11.6)
[2016-11-13 10:20] VITALS: BP 141/97; PULSE 112; RESP 16; O2SAT 98
[2016-11-13 10:20] LABS: BLOOD, URINE MOD (NEG); COMMENT (UR) CULT NOT INDICATED; CULTURE IF INDICATED CULT NOT INDICATED; GLUCOSE,URINE NEG (NEG); KETONE, URINE NEG (NEG); MUCUS URINE MANY /lpf (OCC); NITRITE,URINE NEG (NEG); SQUAMOUS EPITHELIAL CELL URINE 1 /hpf (0-5); URINE COLOR YELLOW (YELLW/STRAW)
[2016-11-13 10:32] LABS: BICARBONATE 26.1 MEQ/L (21.0-32.0)
[2016-11-13 10:43] LABS: POTASSIUM 2.9 MEQ/L (3.5-5.1)
[2016-11-13] MEDS: POTASSIUM CHLORIDE 20 MEQ CONTROLLED RELEASE TAB PO ONE ×2 (11:00→11:16)
--- NOTE | 2016-11-13 16:41 | EKG ---
Date Performed: 11/13/2016 Time Performed: 09:20:48 PTAGE: 31 years EKG: SINUS TACHYCARDIA WITH OCCASIONAL SUPRAVENTRICULAR PREMATURE COMPLEXES POSSIBLE RIGHT VENTR ICULAR CONDUCTION DELAY MINIMAL ST DEPRESSION ABNORMAL RHYTHM ECG PREVIOUS TRACING : 06/16/2016 04.48 Compared to prior tracing no significant change DOCTOR: Andrew Gregorio Interpretating Date/Time 11/13/2016 16:40:38
== END 2016-11-13 11:38 | disposition home or self-care (01) ==
LOC: NEPC 07:53
DX: R21 Rash and other nonspecific skin eruption (principal); F41.9 Anxiety disorder, unspecified; R06.02 Shortness of breath; R00.0 Tachycardia, unspecified; R94.31 Abnormal electrocardiogram [ECG] [EKG]; D64.9 Anemia, unspecified; F17.210 Nicotine dependence, cigarettes, uncomplicated
CPT/HCPCS: 71010; 80048; 81001; 82550; 84443; 84703; 85025; 85379; 85610; 85730; 93005; 99285; J7030